=== PATIENT | female | born 2000 | race Caucasian/White ===

== ENCOUNTER 2020-07-26 05:21 | Emergency (ER) | payer MEDICAID ==
[~2020-07-26] VITALS: Ht 167.6 cm; Wt 131.5 kg
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
--- NOTE | 2020-07-26 05:29 | NUR ---
CALLED LAB REGARDING COVID SWAB.
--- NOTE | 2020-07-26 05:39 | NUR ---
SARKISID SWABBED, SENT TO LAB.
[2020-07-26 05:44] LABS: BASOPHILS % (AUTO) 0.5 % (0.0-2.0); EOSINOPHILS % (AUTO) 1.6 % (0.0-6.0); HEMATOCRIT 41 % (33-45); HEMOGLOBIN 13.4 g/dL (11.5-14.8); LYMPHOCYTES # (AUTO) 1.5 /CMM (0.8-4.8); MEAN CORPUSCULAR HGB CONC 33 g/dl (31.0-36.0); MEAN CORPUSCULAR VOLUME 81 fL (82-100); MONOCYTES # (AUTO) 0.5 /CMM (0.1-1.30); MONOCYTES % (AUTO) 6.5 % (2.0-12.0); NEUTROPHILS # (AUTO) 5.5 /CMM (1.8-8.9); NEUTROPHILS % (AUTO) 71.4 % (43.0-81.0); PLATELET COUNT (AUTO) 265 /CMM (150-450); RED BLOOD CELL COUNT(AUTO) 5.05 MIL/uL (4.0-5.2); WHITE BLOOD COUNT (AUTO) 7.7 K/uL (4.3-11.0)
--- NOTE | 2020-07-26 05:46 | NUR ---
SULFIDE HEAD OPERATOR AT BEDSIDE FOR LABS.
[2020-07-26 05:51] LABS: CARBON DIOXIDE 28 mmol/L (21-32); CHLORIDE 104 mmol/L (98-107); CREATININE 0.8 mg/dL (0.6-1.3); GLUCOSE 111 mg/dL (74-106); POTASSIUM 4.1 mmol/L (3.5-5.1); SODIUM SERUM 140 mmol/L (136-145); UREA NITROGEN, BLOOD 15 mg/dL (7-18)
--- NOTE | 2020-07-26 06:00 | NUR ---
PT UNABLE TO PROVIDE URINE AT THIS TIME. DR RODRIGEZ AWARE.
[2020-07-26 06:04] LABS: ALANINE AMINOTRANSFERASE 32 U/L (12-78); ALBUMIN 3.6 g/dL (3.4-5.0); ALCOHOL, BLOOD < 3 mg/dL (0-0); ALKALINE PHOSPHATASE 103 U/L (46-116); ASPARTATE AMINOTRANSFERASE 22 U/L (15-37); BILIRUBIN,DIRECT 0.1 mg/dL (0.0-0.2); BILIRUBIN,TOTAL 0.2 mg/dL (0.2-1.0); TOTAL PROTEIN, SERUM 8.2 g/dL (6.4-8.2)
[2020-07-26 06:05] LABS: ACETAMINOPHEN < 10 ug/ml (10-30)
--- NOTE | 2020-07-26 06:14 | NUR ---
call from lab. rapid covid negative.
--- NOTE | 2020-07-26 06:48 | NUR ---
PT PROVIDED WITH MORE BLANKETS. VSS.
--- NOTE | 2020-07-26 06:48 | NUR ---
sent urine to the lab
[2020-07-26 07:39] LABS: BILIRUBIN,URINE Negative (NEGATIVE); COLOR,URINE YELLOW (YELLOW); LEUKOCYTE ESTERASE ,URINE Negative (NEGATIVE); NITRITE, URINE Negative (NEGATIVE); PROTEIN,URINE 30 mg/dl (NEGATIVE); UGLUCOSE Negative (NEGATIVE); UROBILINOGEN,URINE 0.2 EU/dL (0.2)
[2020-07-26 07:41] LABS: BACTERIA,URINE None seen /HPF (None Seen); RBC,URINE 0-2 /HPF (0-2); SQUAMOUS EPITHELIAL CELL,UR Few /HPF (None Seen); WBC,URINE 0-2 /HPF (0-3)
--- NOTE | 2020-07-26 07:52 | NUR ---
PATIENT IN BED ASLEEP IN BED. EASILY AROUSABLE BY VOICE. HOOKED TO MONITOR. WILL CONTINUE TO MONITOR ACCORDINGLY. SITTER AT BEDSIDE FOR SAFETY
--- NOTE | 2020-07-26 08:52 | NUR ---
BREAKFAST TRAY PROVIDED, PATIENT TOLERATED PO WELL
--- NOTE | 2020-07-26 10:00 | NUR ---
RYAN CALLED FORM EVAL
--- NOTE | 2020-07-26 10:16 | NUR ---
RYAN CALLED BACK AND WILL BE HERE IN AN HOUR OR SO.
--- NOTE | 2020-07-26 11:49 | NUR ---
EXTRACTION MACHINE OPERATOR RYAN AT BEDSIDE
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
--- NOTE | 2020-07-26 12:37 | NUR ---
PROVIDED W FOOD TRAY, TOLERATED PO WELL
--- NOTE | 2020-07-26 13:49 | NUR ---
PROVIDED PATIENT WITH PHONE TO CALL BROTHER
--- NOTE | 2020-07-26 15:07 | NUR ---
BROTHER: MANUELA [phone], LIVES IN [place], GETS OFF WORK BY 5PM, WILL BE ABLE TO FRONT SIGHT ATTACHER PATIENT AT [phone]
--- NOTE | 2020-07-26 17:42 | NUR ---
provided w food tray, tolerated PO well
--- NOTE | 2020-07-26 18:12 | NUR ---
Patient discharged in stable condition, patient assisted to waiting room while waiting for brother to pick her up. Written and verbal after care instructions given. Patient verbalizes understanding of instruction. All belonging returned to the patient.
[2020-07-26 19:48] VITALS: BP 122/64
== END 2020-07-26 18:16 | disposition home or self-care (01) ==
LOC: ER 05:21
DX: Z00.8 Encounter for other general examination (principal); Z20.828 Contact with and (suspected) exposure to other viral communicable diseases; M79.671 Pain in right foot; S99.921A Unspecified injury of right foot, initial encounter; X58.XXXA Exposure to other specified factors, initial encounter; Y92.89 Other specified places as the place of occurrence of the external cause; Z59.0 Homelessness
CPT/HCPCS: 36415; 73610; 73630; 80048; 80076; 80299; 80307; 80320; 81001; 84702; 84703; 85025; 87426; 99285; C9803; A6403; G0480